=== PATIENT | female | born 1955 | race Caucasian/White ===

== ENCOUNTER → 2016-06-29 | Outpatient (CLI) | payer OTHER | END | disposition home or self-care (01) | LOC: CFH 12:17 | PROVIDERS: ATTEND Nurse Practitioner Primary Care | DX: J98.4 Other disorders of lung (principal); R53.83 Other fatigue; E78.2 Mixed hyperlipidemia; J32.9 Chronic sinusitis, unspecified; Z68.36 Body mass index [BMI] 36.0-36.9, adult | CPT/HCPCS: 71020 ==

== ENCOUNTER → 2016-07-22 | Outpatient (CLI) | payer OTHER | END | disposition home or self-care (01) | LOC: CFH 15:42 | PROVIDERS: ATTEND Nurse Practitioner Primary Care | DX: E03.9 Hypothyroidism, unspecified (principal); E78.2 Mixed hyperlipidemia; J32.9 Chronic sinusitis, unspecified | CPT/HCPCS: 76536 ==